=== PATIENT | female | born 1955 | race Caucasian/White ===

== ENCOUNTER 2017-10-05 14:38 | Emergency (ER) | payer MEDICAID ==
[2017-10-05 14:49] VITALS: BP 151/91; PULSE 91; TEMP 98.1; O2SAT 98
--- NOTE | 2017-10-05 15:10 | C.PDOC ---
History Of Present Illness 62 y/o female with past medical history of bad knee trauma (10 years ago) presents to the ED complaining of left knee pain x4 days. Patient reports taking tylenol without relief. Denies fever or any further medical complaints. PMD: Alex Noel MD Time Seen by Provider: 10/05/17 14:57 Chief Complaint (Nursing): Lower Extremity Problem/Injury History Per: Patient History/Exam Limitations: no limitations Onset/Duration Of Symptoms: Days (x4 days) Current Symptoms Are (Timing): Still Present Past Medical History Reviewed: Historical Data, Nursing Documentation, Vital Signs Vital Signs: Last Vital Signs Temp 98.1 F 10/05/17 14:45 Pulse 91 H 10/05/17 14:45 Resp 20 10/05/17 14:45 BP 151/91 H 10/05/17 14:45 Pulse Ox 98 10/05/17 15:11 - Medical History PMH: Diabetes, HTN, Kidney Stones, Chronic Kidney Disease Other Surgeries: Lithotripsy Family History: States: Unknown Family Hx - Social History Hx Tobacco Use: No Hx Alcohol Use: No Hx Substance Use: No - Immunization History Hx Influenza Vaccination: No Review Of Systems Except As Marked, All Systems Reviewed And Found Negative. (As per HPI, otherwise negative) Constitutional: Negative for: Fever Musculoskeletal: Positive for: Other (Left knee pain) Physical Exam - Physical Exam Appears: Well, No Acute Distress Skin: Normal Color, Warm, Dry Head: Atraumatic, Normacephalic Nose: Normal Neck: Normal Chest: Symmetrical, No Deformity Cardiovascular: Rhythm Regular, No Murmur Respiratory: Normal Breath Sounds, No Accessory Muscle Use Gastrointestinal/Abdominal: Normal Exam, Soft Back: Normal Inspection Extremity: Normal ROM (left knee), No Tenderness (left knee), No Deformity, No Swelling (left knee) Neurological/Psych: Oriented x3 ED Course And Treatment O2 Sat by Pulse Oximetry: 98 (RA) Pulse Ox Interpretation: Normal Medical Decision Making Medical Decision Making: Time: 15:08 Upon provider reevaluation patient is feeling better, is medically stable, and requires no further treatment in the ED at this time. Patient will be discharged home with Rx for Motrin 600mg PO. Counseling was provided and all questions were answered regarding diagnosis and need for follow up with Dr. Rodger Lugo. There is agreement to discharge plan. Return if symptoms persist or worsen. Clinical Impression: Arthritis Scribe Attestation: Documented by Pérez Simpson acting as a scribe for Alexis Armijo MD. Scribe Attestation: All medical record entries made by the Scribe were at my direction and personally dictated by me. I have reviewed the chart and agree that the record accurately reflects my personal performance of the history, physical exam, medical decision making, and the department course for this patient. I have also personally directed, reviewed, and agree with the discharge instructions and disposition. Disposition - Disposition Referrals: Rodger Lugo III, MD [Staff Provider] - Disposition: HOME/ ROUTINE Disposition Time: 15:08 Condition: STABLE Additional Instructions: Ms. Radford, thank you for letting us take care of you today. Return to the ER if your symptoms worsen, or if any problems. Take the medication listed below as prescribed. Follow up with the orthopedic doctor (Dr. Rodger Lugo) next week for a re- evaluation. You must call the phone number listed below to make an appointment with this doctor. Prescriptions: Ibuprofen [Motrin] 1 tab PO Q8 PRN #30 tab PRN Reason: Pain, Moderate (4-7) Instructions: Knee Pain (ED), Arthritis (ED) Forms: [place] (Lithuanian), General Discharge Instructions Print Language: HONG KONGER - POA Present On Arrival: None - Clinical Impression Clinical Impression: Arthritis, Knee pain, right
[2017-10-05 15:48] VITALS: RESP 18
== END 2017-10-05 15:43 | disposition home or self-care (01) ==
LOC: C.ER 14:38
DX: M13.861 Other specified arthritis, right knee (principal); M25.561 Pain in right knee